=== PATIENT | male | born 1940 | race Caucasian/White ===

== ENCOUNTER 2017-04-10 17:07 | Emergency (ER) | payer MEDICARE ==
--- NOTE | 2017-04-10 17:43 | RAD ---
CHEST TWO VIEW 04/10/17 HISTORY: Dyspnea. COMPARISON: None. FINDINGS: The lungs are without focal air space consolidation, pneumothorax or effusion. Moderate spondylolyti c changes lower thoracic spine. No pneumothorax. IMPRESSION: No acute intrathoracic abnormality. POS: [facility]
[2017-04-10 17:51] LABS: Hematocrit 43.1 % (42.0-52.0); Mean Platelet Volume 6.9 fL (7.4-10.4); Red Blood Cell (RBC) Count 4.77 mill/uL (4.70-6.10); White Blood Cell (WBC) Count 5.2 thou/uL (4.8-10.8)
[2017-04-10 18:02] LABS: Lactic Acid - Sepsis 0.8 mmol/L (0.5-2.2)
[2017-04-10 18:06] LABS: Band 20 % (5-11); Neutrophil 40 % (42-75); Reactive Lymphocytes 7 % (0-10)
[2017-04-10 18:06] LABS: ALT (SGPT) 16 U/L (8-55); AST (SGOT) 23 U/L (5-34); Alkaline Phosphatase 74 U/L (40-150); Anion Gap 13 mmol/L (10-20); BUN (Urea Nitrogen) 27 mg/dL (8.4-25.7); Bilirubin, Total 0.7 mg/dL (0.2-1.2); Calc. Creatinine Clearance 0 mL/min (70-130); Calcium 9.6 mg/dL (7.8-10.44); Carbon Dioxide 25 mmol/L (23-31); Chloride 97 mmol/L (98-107); Estimated GFR-MDRD 49; Globulin 3.9 g/dL (2.4-3.5); Lipase 44 U/L (8-78); Protein, Total 7.6 g/dL (5.8-8.1)
--- NOTE | 2017-05-15 15:43 | EKG ---
Test Reason : Blood Pressure : / mmHG Vent. Rate : 078 BPM Atrial Rate : 078 BPM P-R Int : 160 ms QRS Dur : 080 ms QT Int : 358 ms P-R-T Axes : 034 010 024 degrees QTc Int : 408 ms Sinus rhythm with marked sinus arrhythmia with occasional Premature ventricular complexes Otherwise normal ECG Confirmed by SMILEY TREVINO D.O. ([id number]), telegraph editor LUCIANA QUI ([id number]) on 05/15/2017 3:42:48 PM Referred By: Confirmed By:SMILEY TREVINO D.O.
== END 2017-04-10 20:20 | disposition home or self-care (01) ==
LOC: ERS 17:07
DX: E86.0 Dehydration (principal); R50.9 Fever, unspecified; E78.5 Hyperlipidemia, unspecified; I10 Essential (primary) hypertension; M86.9 Osteomyelitis, unspecified; E04.9 Nontoxic goiter, unspecified; Z87.891 Personal history of nicotine dependence
CPT/HCPCS: 36415; 71020; 80053; 83605; 83690; 85025; 87040; 93005; 94760; 96360